=== PATIENT | female | born 1975 | race Two or more races ===

== ENCOUNTER 2017-11-25 07:13 | Outpatient (CLI) | payer OTHER ==
[~2017-11-25 07:13] MED LIST: ATARAX25 MG PO; ZYRTEC10 MG PO
== END 2017-11-25 07:37 | disposition home or self-care (01) ==
LOC: LAB 07:13
DX: D64.89 Other specified anemias (principal); E78.2 Mixed hyperlipidemia; Z12.9 Encounter for screening for malignant neoplasm, site unspecified; Z12.11 Encounter for screening for malignant neoplasm of colon

== ENCOUNTER 2017-11-27 11:39 | Outpatient (CLI) | payer OTHER | END 2017-11-27 11:43 | disposition home or self-care (01) | LOC: LAB 11:39 | DX: D64.89 Other specified anemias (principal); E78.00 Pure hypercholesterolemia, unspecified; Z12.11 Encounter for screening for malignant neoplasm of colon; Z12.73 Encounter for screening for malignant neoplasm of ovary; C25.9 Malignant neoplasm of pancreas, unspecified ==

== ENCOUNTER 2017-12-02 08:48 | Outpatient (CLI) | payer OTHER | END 2017-12-02 09:21 | disposition home or self-care (01) | LOC: TOM 08:48 | DX: Z12.11 Encounter for screening for malignant neoplasm of colon (principal); Z12.9 Encounter for screening for malignant neoplasm, site unspecified ==

== ENCOUNTER 2017-12-02 08:51 | Outpatient (CLI) | payer OTHER | END 2017-12-02 09:18 | disposition home or self-care (01) | LOC: MAMO-SONO 08:51 | DX: Z12.31 Encounter for screening mammogram for malignant neoplasm of breast (principal) ==

== ENCOUNTER 2018-08-07 01:55 | Emergency (ER) | payer OTHER ==
[~2018-08-07] VITALS: Ht 160 cm; Wt 72.6 kg
[2018-08-07] MEDS ORDERED: [UNRECOGNIZED DRUG - OTHER] (02:14)
[2018-08-07] MEDS ORDERED: SULFAMETHOXAZO1 EACH (02:15)
[2018-08-07] MEDS ORDERED: SURFAK240 M1 (02:16)
[2018-08-07] MEDS ORDERED: ZOFRAN ODT4 MG PO (08:55)
== END 2018-08-07 09:08 | disposition home or self-care (01) ==
LOC: ER 01:55
DX: K29.70 Gastritis, unspecified, without bleeding (principal)

== ENCOUNTER 2018-11-09 23:47 | Emergency (ER) | payer OTHER ==
[~2018-11-09] VITALS: Ht 160 cm; Wt 65.8 kg
[~2018-11-09 23:47] MED LIST changes: +SULFAMETHOXAZO1 EACH; +SURFAK240 M1; +ZOFRAN ODT4 MG PO; +[UNRECOGNIZED DRUG - OTHER]
[2018-11-10] MEDS ORDERED: ALBUTEROL2.5 MG/3 M IH ×2 (06:16→06:21)
[2018-11-10] MEDS ORDERED: SYMBICORT 16010.2 GM IH ×2 (06:17→06:21)
[2018-11-10] MEDS ORDERED: ZYNCOF 20-400120 ML PO (06:17)
[2018-11-10] MEDS ORDERED: OSEL75CA PO (06:17)
[2018-11-10] MEDS ORDERED: RANITIDINE HCL300 MG PO ×2 (06:22)
== END 2018-11-10 06:30 | disposition home or self-care (01) ==
LOC: ER 23:47
DX: J45.998 Other asthma (principal)

== ENCOUNTER 2018-12-11 08:07 | Outpatient (CLI) | payer OTHER ==
[~2018-12-11 08:07] MED LIST changes: +ALBUTEROL2.5 MG/3 M IH; +OSEL75CA PO; +RANITIDINE HCL300 MG PO; +SYMBICORT 16010.2 GM IH; +ZYNCOF 20-400120 ML PO
== END 2018-12-11 13:09 | disposition home or self-care (01) ==
LOC: LAB 08:07
DX: E11.9 Type 2 diabetes mellitus without complications (principal); N39.0 Urinary tract infection, site not specified; Z12.9 Encounter for screening for malignant neoplasm, site unspecified; C25.0 Malignant neoplasm of head of pancreas; Z12.11 Encounter for screening for malignant neoplasm of colon; E03.8 Other specified hypothyroidism; R76.0 Raised antibody titer

== ENCOUNTER 2018-12-13 08:26 | Outpatient (CLI) | payer OTHER | END 2018-12-13 09:04 | disposition home or self-care (01) | LOC: LAB 08:26 | DX: K80.20 Calculus of gallbladder without cholecystitis without obstruction (principal); Z01.818 Encounter for other preprocedural examination ==

== ENCOUNTER 2018-12-24 06:20 | Day surgery (SDC) | payer OTHER ==
[~2018-12-24 06:20] MED LIST changes: +DOXYCYCLINE PO
[2018-12-24] MEDS ORDERED: ULTRACET PO (14:36)
== END 2018-12-24 17:10 | disposition home or self-care (01) ==
LOC: CIR.AMB 06:20
DX: K80.10 Calculus of gallbladder with chronic cholecystitis without obstruction (principal)

== ENCOUNTER 2024-09-03 08:58 | Day surgery (SDC) | payer OTHER ==
[~2024-09-03 08:58] MED LIST changes: +ULTRACET PO
[2024-09-03] MEDS ORDERED: POVIDONE-IODINE 118 ML BOTT TOP ONE (10:30)
[2024-09-03] MEDS ORDERED: CEFAZOLIN SODIUM 1,000 MG VIAL IV ONE (10:30)
== END 2024-09-03 16:20 | disposition home or self-care (01) ==
LOC: CIR.AMB 08:58
PROVIDERS: ATTEND Obstetrics & Gynecology
DX: N84.0 Polyp of corpus uteri (principal)

== ENCOUNTER 2024-12-08 07:47 | Emergency (ER) | payer OTHER ==
[~2024-12-08] VITALS: Ht 160 cm; Wt 72.6 kg
[2024-12-08] MEDS ORDERED: KETOROLAC TROMETHAMINE 60 MG VIAL IM ONE ×2 (09:45→09:47)
[2024-12-08 10:07] LABS: HEMATOCRIT 32.6 % (36.0-45.00); HEMOGLOBIN 10.8 g/dL (12.0-15.00); MEAN CELL VOLUME 76.6 fL (80.00-100.00); MEAN CORPUSCULAR HEMOGLOBIN 25.3 pg (27.00-32.0); MEAN CORPUSCULAR HGB CONC 33.1 g/dl (32.0-36.0); PLATELET COUNT 359 K/uL (150-450); RED BLOOD COUNT 4.26 M/uL (4.00-6.00); RED CELL DISTRIBUTION WIDTH 17.2 % (11.5-14.5)
[2024-12-08 10:42] LABS: PH,URINE 5.5 (5.0-8.0); URINE APPEARANCE Cloudy; URINE BILIRRUBIN Negative (NEGATIVE); URINE BLOOD Large; URINE GLUCOSE Negative (NEGATIVE); URINE KETONE Negative (NEGATIVE); URINE LEUKOCYTE Trace; URINE NITRATE Negative; URINE PROTEIN Trace (NEGATIVE); URINE UROBILINOGEN 0.2 E.U./dl
[2024-12-08 10:47] LABS: URINE BACTERIA 88.1 uL (0.0-1933); URINE EPITHELIAL CELLS 1.5 uL (0.0-38.8); URINE WBC 13.5 uL (0.0-23.2)
[2024-12-08 10:50] LABS: CALCIUM 9.6 mg/dL (8.5-10.1); CREATININE SERUM 0.94 mg/dL (0.55-1.02); GFR 63.83; POTASSIUM 4.02 mEq/L (3.5-5.1)
[2024-12-08 11:07] LABS: URINE CAST 0.29 uL (0.0-1.40); URINE COLOR RED; URINE RBC > 10558.9 uL (0.0-20.8)
[2024-12-08] MEDS ORDERED: MORPHINE SULFATE 4 MG/ML VIAL IV ONE (12:00)
[2024-12-08] MEDS ORDERED: METHYLPREDNISOLONE SOD SUCC 125 MG VIAL IV ONE (12:00)
== END 2024-12-08 14:15 | disposition home or self-care (01) ==
LOC: ER 07:47
PROVIDERS: Emergency Medicine
DX: R10.2 Pelvic and perineal pain (principal); N92.1 Excessive and frequent menstruation with irregular cycle; N92.0 Excessive and frequent menstruation with regular cycle; M54.16 Radiculopathy, lumbar region; D64.9 Anemia, unspecified

== ENCOUNTER 2025-01-17 09:07 | Emergency (ER) | payer OTHER ==
[~2025-01-17] VITALS: Ht 160 cm; Wt 71.2 kg
[2025-01-17] MEDS ORDERED: KETOROLAC TROMETHAMINE 60 MG VIAL IM ONE (09:45)
[2025-01-17] MEDS ORDERED: ORPHENADRINE CITRATE 30 MG/ML AMPUL IM ONE (09:45)
[2025-01-17] MEDS ORDERED: DEXAMETHASONE SODIUM PHOSP/PF 10 MG/ML VIAL IV ONE (10:45)
[2025-01-17] MEDS ORDERED: MORPHINE SULFATE 2 MG/ML SYRINGE IV ONE (10:45)
[2025-01-17] MEDS ORDERED: TRAMADOL HCL E100 MG PO (11:16)
[2025-01-17] MEDS ORDERED: PROTONIX40 MG PO (11:16)
== END 2025-01-17 11:34 | disposition home or self-care (01) ==
LOC: ER 09:08
DX: R10.30 Lower abdominal pain, unspecified (principal); R10.9 Unspecified abdominal pain; M54.9 Dorsalgia, unspecified

== ENCOUNTER 2025-03-09 15:21 | Inpatient (IN) | payer OTHER ==
[~2025-03-09] VITALS: Ht 160 cm; Wt 68.5 kg
[~2025-03-09 15:21] MED LIST changes: +PROTONIX40 MG PO; +TRAMADOL HCL E100 MG PO
[2025-03-09 17:06] LABS: PH,URINE 5.5 (5.0-8.0); URINE APPEARANCE Clear; URINE BILIRRUBIN Negative (NEGATIVE); URINE BLOOD Negative; URINE COLOR Yellow; URINE GLUCOSE Negative (NEGATIVE); URINE KETONE Negative (NEGATIVE); URINE LEUKOCYTE Negative; URINE NITRATE Negative; URINE PROTEIN Negative (NEGATIVE); URINE UROBILINOGEN 0.2 E.U./dl
[2025-03-09 17:07] LABS: URINE BACTERIA 17.1 uL (0.0-1933); URINE EPITHELIAL CELLS 8.8 uL (0.0-38.8); URINE WBC 16.4 uL (0.0-23.2)
[2025-03-09 17:12] LABS: HEMATOCRIT 25.5 % (34.1-44.9); HEMOGLOBIN 8.2 g/dL (11.2-15.7); RED BLOOD COUNT 3.64 M/uL (3.93-5.22)
[2025-03-09 17:13] LABS: BASO % 0.7 % (0.1-1.2); EOS % 0.2 % (0.7-7.0); LYMPH % 16.1 % (19.3-53.1); MEAN CORPUSCULAR HEMOGLOBIN 22.5 pg (25.6-32.2); MONO % 6.1 % (4.7-12.5); NEUT % 76.6 % (34.0-71.1); PLATELET COUNT 464 K/uL (163-369); RED CELL DISTRIBUTION WIDTH 16.6 % (11.6-14.4)
[2025-03-09 17:14] LABS: EOS # 0.02 (0.04-0.54); LYMPH # 1.45 (1.18-3.74); MONO # 0.55 (0.24-0.82)
[2025-03-09 17:15] LABS: CALCIUM 9.2 mg/dL (8.5-10.1); CREATININE SERUM 0.78 mg/dL (0.55-1.02); GFR 79.16; POTASSIUM 3.53 mEq/L (3.5-5.1)
[2025-03-09 17:38] LABS: URINE RBC 1.4 uL (0.0-20.8)
[2025-03-09] MEDS ORDERED: KETOROLAC TROMETHAMINE 60 MG VIAL IM ONE (18:15)
[2025-03-09] MEDS ORDERED: DIATRIZOATE MEGLUMINE, SODIUM 30 ML BOTTLE ONE (18:27)
[2025-03-09] MEDS ORDERED: MORPHINE SULFATE 4 MG/ML VIAL IV ONE (18:30)
[2025-03-09] MEDS ORDERED: FAMOTIDINE/PF 20 MG in 0.9 % SODIUM CHLORIDE 8 ML IV PUSH STA (23:09)
[2025-03-09] MEDS ORDERED: FAMOTIDINE/PF 20 MG/2 ML VIAL ONE (23:39)
[2025-03-10] MEDS ORDERED: SODIUM CHLORIDE 0.45 % 1,000 ML IV SCH (00:45)
[2025-03-10] MEDS ORDERED: MORPHINE SULFATE 4 MG/ML VIAL IV PRN (01:00)
[2025-03-10] MEDS ORDERED: MORPHINE SULFATE 4 MG/ML VIAL IV SCH (01:00)
[2025-03-10 03:11] LABS: FERRITIN 5.3 NG/ML (8-252)
[2025-03-10 04:24] VITALS: BP 90/68; O2SAT 99
[2025-03-10 08:00] VITALS: BP 88/48; O2SAT 99
[2025-03-10] MEDS ORDERED: FAMOTIDINE/PF 20 MG/2 ML VIAL IV SCH (09:00)
[2025-03-10] MEDS ORDERED: DIPHENHYDRAMINE HCL 50 MG/ML VIAL 1ML IV NR (14:30)
[2025-03-10] MEDS ORDERED: METHYLPREDNISOLONE SOD SUCC 40 MG VIAL IV NR (14:30)
[2025-03-10 16:58] VITALS: BP 110/72; O2SAT 100
[2025-03-10] MEDS ORDERED: DIPHENHYDRAMINE HCL 50 MG/ML VIAL 1ML ONE (18:51)
[2025-03-10] MEDS ORDERED: METHYLPREDNISOLONE SOD SUCC 40 MG VIAL ONE (19:58)
[2025-03-10] MEDS ORDERED: SOD FERRIC GLUC COMPLX/SUCROSE 62.5 MG in 0.9 % SODIUM CHLORIDE 50 ML IV SCH (21:00)
[2025-03-11 02:48] VITALS: BP 127/79
[2025-03-11 08:21] VITALS: BP 122/74; O2SAT 98
[2025-03-11 10:15] LABS: BASO % 0.3 % (0.1-1.2); HEMATOCRIT 32.9 % (34.1-44.9); LYMPH # 1.08 (1.18-3.74); LYMPH % 11.6 % (19.3-53.1); MEAN CORPUSCULAR HEMOGLOBIN 24.7 pg (25.6-32.2); MONO # 0.62 (0.24-0.82); MONO % 6.6 % (4.7-12.5); NEUT # 7.57 (1.56-6.13); NEUT % 81.1 % (34.0-71.1); PLATELET COUNT 426 K/uL (163-369); RED BLOOD COUNT 4.45 M/uL (3.93-5.22); RED CELL DISTRIBUTION WIDTH 17.5 % (11.6-14.4)
[2025-03-11 10:56] LABS: INR 1.01; PARTIAL THROMBOPLASTIN TIME 25.2 SECONDS (22.0-34.0)
[2025-03-11 12:01] LABS: TSH 1.18 uIU/mL (0.358-3.74)
[2025-03-11 18:23] VITALS: BP 110/69; O2SAT 99
[2025-03-11] MEDS ORDERED: MIDAZOLAM HCL 2 MG/2 ML VIAL IV PUSH ONE (18:30)
[2025-03-11] MEDS ORDERED: fentaNYL CITRATE 50 MCG/ML AMPUL IV PUSH ONE (18:30)
[2025-03-11] MEDS ORDERED: MORPHINE SULFATE 4 MG/ML CARTRIDGE IV PRN (18:45)
[2025-03-11] MEDS ORDERED: fentaNYL 25 MCG PATCH.TD72 TD SCH (19:00)
[2025-03-12] VITALS: BP 127/77; O2SAT 99
[2025-03-12 07:58] VITALS: BP 104/68
[2025-03-12] MEDS ORDERED: LORazepam 1 MG TABLET PO SCH (15:06)
[2025-03-12] MEDS ORDERED: FAMOtidine 20 MG TABLET PO SCH (17:00)
[2025-03-12] MEDS ORDERED: LORAZEPAM1 MG PO (17:04)
[2025-03-12] MEDS ORDERED: FAMOTIDINE20 MG PO (17:08)
[2025-03-12] MEDS ORDERED: FENTANYL1 EAC3 TD (17:08)
[2025-03-12] MEDS ORDERED: INTEGRA PLUS C1 EACH PO (17:10)
[2025-03-12] MEDS ORDERED: [UNRECOGNIZED DRUG - OTHER] PO (17:10)
[2025-03-12] MEDS ORDERED: LACTULOSE PO (17:10)
[2025-03-12] MEDS ORDERED: PERCOCET 5-3251 EACH PO (17:12)
[2025-03-12] MEDS ORDERED: PROTONIX40 MG PO (17:13)
[2025-03-12 17:31] VITALS: BP 119/77; O2SAT 98
[2025-03-13 05:07] LABS: ALPHA FETO PROTEIN 2.1 ng/mL (0.0-6.4)
== END 2025-03-12 17:50 | disposition home or self-care (01) | DRG 394 ==
LOC: ER 16:17 → MEDJ 03-10 00:52 → MEDI 03-10 00:52 → MEDJ 03-10 19:01
PROVIDERS: Emergency Medicine; Obstetrics & Gynecology; ADMIT Internal Medicine Cardiovascular Disease; ATTEND Internal Medicine Cardiovascular Disease
PROC: BU45ZZZ Ultrasonography of Bilateral Ovaries (ICD-10-PCS; 2025-03-09)
PROC: BW21YZZ Computerized Tomography (CT Scan) of Abdomen and Pelvis using Other Contrast (ICD-10-PCS; 2025-03-09)
PROC: 30233N1 Transfusion of Nonautologous Red Blood Cells into Peripheral Vein, Percutaneous Approach (ICD-10-PCS; 2025-03-10)
PROC: 0DBU4ZX Excision of Omentum, Percutaneous Endoscopic Approach, Diagnostic (ICD-10-PCS; principal; 2025-03-11)
DX: K63.5 Polyp of colon (principal); C80.0 Disseminated malignant neoplasm, unspecified; R19.00 Intra-abdominal and pelvic swelling, mass and lump, unspecified site; D64.9 Anemia, unspecified